=== PATIENT | male | born 1995 | race Two or more races ===

== ENCOUNTER 2020-04-14 11:19 | Emergency (ER) | payer MEDICAID ==
[~2020-04-14] VITALS: Ht 180.3 cm; Wt 73.0 kg
[2020-04-14] MEDS: ONDANSETRON HCL 4MG/2ML INJ IV STA ×2 (12:19→12:31)
[2020-04-14] MEDS ORDERED: MORPHINE SULFATE 4 MG/ML CPJ (NOT FOR IM USE) IV STA (12:19)
[2020-04-14] MEDS ORDERED: SODIUM CHLORIDE 0.9% 1,000 ML IV ONE (12:30)
[2020-04-14] MEDS ORDERED: IBUPROFEN 600MG TABLET PO ONE (13:30)
[2020-04-14] MEDS ORDERED: HYDROCODONE/ACETAMINOPHEN 10/325MG TABLET PO ONE (13:30)
[2020-04-14 14:13] VITALS: BP 118/57
== END 2020-04-14 14:23 | disposition home or self-care (01) ==
LOC: ER 11:19
DX: S92.001A Unspecified fracture of right calcaneus, initial encounter for closed fracture (principal); W01.0XXA Fall on same level from slipping, tripping and stumbling without subsequent striking against object, initial encounter; Y93.9 Activity, unspecified; Y92.9 Unspecified place or not applicable
CPT/HCPCS: 73610; 96361; 96374; 96375; 99284; J2270; J2405; J7030